=== PATIENT | male | born 1955 | race Asian ===

== ENCOUNTER 2021-05-25 09:22 | Emergency (ER) | payer OTHER ==
[~2021-05-25] VITALS: Ht 167.6 cm; Wt 57.2 kg
[2021-05-25 09:37] VITALS: BP_SYST 125
--- NOTE | 2021-05-25 09:45 | NUR ---
AMBULATED TO BED 5
--- NOTE | 2021-05-25 09:49 | NUR ---
ER DR. QUINTEROS AT THE BEDSIDE EXAMINING PT
--- NOTE | 2021-05-25 09:50 | NUR ---
PT CAME IN FROM HOME C/O WORSENING LOWER BACK PAIN. PT STATES HE WORKS A [employer] AND DUE TO LIFTING AND PULLING HAS DEVELOPED BACK PAIN STARTING WEDNESDAY. PT STATES PAIN IS WORSE WITH SITTING. PT IS AMBULATORY, AAOX4, V/S STABLE
[2021-05-25] MEDS: KETOROLAC TROMETHAMINE 30 MG VIAL IM ONE (10:04)
[2021-05-25] MEDS ORDERED: IBUP-1969 PO (10:10)
[2021-05-25] MEDS ORDERED: METH-634 PO (10:10)
[2021-05-25 10:33] VITALS: BP_SYST 125
--- NOTE | 2021-05-25 10:34 | NUR ---
Patient given written and verbal discharge instructions and verbalizes understanding. ER MD discussed with patient the results and treatment provided. Patient in stable condition. ID arm band removed. Rx of IBUPROFEN AND ROBAXIN given. Patient educated on pain management and to follow up with PMD. Pain Scale 0/10. Opportunity for questions provided and answered. Medication side effect fact sheet provided.
== END 2021-05-25 10:33 | disposition home or self-care (01) ==
LOC: SED 09:22
DX: M54.9 Dorsalgia, unspecified (principal); I10 Essential (primary) hypertension; Z79.899 Other long term (current) drug therapy
CPT/HCPCS: 96372; 99283; J1885